=== PATIENT | female | born 1950 | race Caucasian/White ===

== ENCOUNTER 2021-05-14 01:01 | Inpatient (IN) | payer MEDICARE ==
[2021-05-14] MEDS ORDERED: Fentanyl 100 MCG/2 ML VIAL ONE ×2 (01:46→04:47)
[2021-05-14] MEDS ORDERED: Ondansetron PF 4 MG/2 ML Vial ONE (01:46)
[2021-05-14 01:53] LABS: Hemoglobin 12.8 g/dL (12.0-16.0); Mean Corpuscular HGB CONC 34.7 g/dL (32.0-36.0); Mean Corpuscular Hemoglobin 32.2 pg (27.0-31.0); Mean Corpuscular Volume 92.8 fL (78.0-98.0); Mean Platelet Volume 8.8 fL (7.4-10.4); Platelet Count 286 thou/uL (130-400); RBC Distribution Width 22.7 % (11.5-14.5); Red Blood Cell (RBC) Count 3.96 mill/uL (4.20-5.40); White Blood Cell (WBC) Count 12.6 thou/uL (4.8-10.8)
[2021-05-14 02:14] LABS: #Basophils 0.1 thou/uL (0.0-0.2); #Eosinphils 0.2 thou/uL (0.0-0.7); #Lymphocytes 1.8 thou/uL (1.20-3.40); #Monocytes 0.9 thou/uL (0.11-0.59); #Neutrophils 9.6 thou/uL (1.40-6.50); %Basophils 0.5 % (0.0-1.0); %Lymphocytes 14.4 % (21.0-51.0); %Monocytes 7.3 % (0.0-10.0); %Neutrophils 75.9 % (42.0-75.0)
[2021-05-14 02:21] LABS: ALT (SGPT) 12 U/L (8-55); AST (SGOT) 22 U/L (5-34); Albumin 3.9 g/dL (3.4-4.8); Alkaline Phosphatase 62 U/L (40-110); Anion Gap 13 mmol/L (10-20); BUN (Urea Nitrogen) 23 mg/dL (9.8-20.1); Bilirubin, Total 0.3 mg/dL (0.2-1.2); Calc. Creatinine Clearance 0 mL/min (70-130); Calcium 9.5 mg/dL (7.8-10.44); Carbon Dioxide 30 mmol/L (23-31); Chloride 92 mmol/L (98-107); Globulin 3.2 g/dL (2.4-3.5); Glucose 115 mg/dL (83-110); Lipase 21 U/L (8-78); Potassium 3.7 mmol/L (3.5-5.1); Protein, Total 7.1 g/dL (5.8-8.1); Sodium 131 mmol/L (136-145)
[2021-05-14 05:48] LABS: Bacteria/HPF 4+ HPF (None Seen); Bilirubin Negative (Negative); Blood, Urine Negative (Negative); Clarity Clear (Clear); Glucose, Urine (Dipstick) Normal (Negative); Ketone, Urine Negative (Negative); Leukocyte 75 Leu/uL (Negative); Nitrite 2+ (Negative); Protein, Urine (Dipstick) 10 mg/dL (Neg-Trace); Specific Gravity, Urine 1.044 (1.002-1.036); Squamous Epithelial None Seen HPF (0-3); Urobilinogen Normal mg/dL (Less than 2); WBC/HPF 21-50 HPF (0-3); pH, Urine 6.5 (5.0-9.0)
[2021-05-14] MEDS ORDERED: cefTRIAXone\\ROCEPHIN 2 GM VIAL ONE (06:02)
[2021-05-14 06:58] LABS: SARS-CoV-2 NAA Rapid Test Not Detected (NotDetected)
[2021-05-14 07:24] VITALS: BMI 33.5
[2021-05-14] MEDS ORDERED: Sodium Chloride 0.9% 1,000 ML IV SCH (08:00)
[2021-05-14] MEDS ORDERED: Ondansetron ODT 4 MG TAB SL PRN ×2 (08:00→19:48)
[2021-05-14] MEDS ORDERED: Ondansetron PF 4 MG/2 ML Vial IVP PRN ×2 (08:00→19:48)
[2021-05-14] MEDS: Fentanyl 100 MCG/2 ML VIAL SLOW IVP PRN ×3 (08:04→14:47)
[2021-05-14] MEDS ORDERED: Iopamidol-370 76% 500 ML 1 ML ONE (08:42)
[2021-05-14] MEDS ORDERED: MD-Gastroview 120 ML BOT ONE (08:55)
[2021-05-14] MEDS: Dicyclomine 20 MG TAB PO SCH ×2 (18:43→20:37)
[2021-05-14] MEDS ORDERED: Acetaminophen 500 MG TAB PO PRN (19:49)
[2021-05-14] MEDS: cloNIDine 0.1 MG TAB PO SCH (20:36)
[2021-05-14] MEDS: busPIRone HCl 5 MG TAB PO SCH (20:36)
[2021-05-14] MEDS: Gabapentin 300 MG CAP PO SCH (20:37)
[2021-05-14] MEDS ORDERED: Divalproex Sodium 125 mg Sprinkle Capsule PO SCH (21:00)
[2021-05-14] MEDS ORDERED: Atorvastatin Calcium 10 MG TAB PO SCH (21:00)
[2021-05-15] MEDS ORDERED: Levothyroxine Sodium 50 MCG TAB PO SCH (06:00)
[2021-05-15] MEDS ORDERED: Ferrous Sulfate 325 MG TAB PO SCH (08:00)
[2021-05-15] MEDS ORDERED: Furosemide 20 MG TAB PO SCH (09:00)
[2021-05-15] MEDS ORDERED: Losartan 25 MG TAB PO SCH ×2 (09:00)
[2021-05-15] MEDS ORDERED: Hydrochlorothiazide 25 MG TAB PO SCH (09:00)
[2021-05-15] MEDS ORDERED: Divalproex Sodium 125 mg Sprinkle Capsule PO SCH (09:00)
[2021-05-15] MEDS ORDERED: Folic Acid 1 MG TAB PO SCH (09:00)
[2021-05-15] MEDS ORDERED: Trospium 20 MG TAB PO SCH (09:00)
[2021-05-15] MEDS ORDERED: Citalopram 20 MG TAB PO SCH (09:00)
[2021-05-15] MEDS: cloNIDine 0.1 MG TAB PO SCH (09:23)
[2021-05-15] MEDS: Gabapentin 300 MG CAP PO SCH (09:24)
[2021-05-15] MEDS: busPIRone HCl 5 MG TAB PO SCH (09:26)
[2021-05-15] MEDS: Dicyclomine 20 MG TAB PO SCH ×2 (09:28→13:15)
[2021-05-15] MEDS: Aripiprazole 2 MG TAB PO SCH ×2 (09:30→09:37)
[2021-05-15 11:00] VITALS: BP 109/67; TEMP 97.8
== END 2021-05-15 13:45 | disposition home or self-care (01) | DRG 389 ==
LOC: ERS 01:01 → SJJU 04:23
PROVIDERS: ADMIT Specialist; ATTEND Specialist
DX: K56.600 Partial intestinal obstruction, unspecified as to cause (principal); N39.0 Urinary tract infection, site not specified; F41.9 Anxiety disorder, unspecified; I10 Essential (primary) hypertension; E78.5 Hyperlipidemia, unspecified; F31.9 Bipolar disorder, unspecified; B96.20 Unspecified Escherichia coli [E. coli] as the cause of diseases classified elsewhere; Z88.5 Allergy status to narcotic agent; Z88.0 Allergy status to penicillin; Z90.49 Acquired absence of other specified parts of digestive tract; Z79.899 Other long term (current) drug therapy; Z90.710 Acquired absence of both cervix and uterus; Z85.038 Personal history of other malignant neoplasm of large intestine; Z93.2 Ileostomy status; Z87.891 Personal history of nicotine dependence
CPT/HCPCS: 71045; 74022; 74177; 74250; 80053; 81003; 81015; 83690; 85025; 87077; 87086; 87186; 93005; 96374; 96375; 96376; J0696; J2405; J3010; Q9963; Q9967; U0002; U0005

== ENCOUNTER 2024-08-28 08:22 | Inpatient (IN) | payer MEDICARE ==
[2024-08-28 09:00] LABS: #Basophils 0.03 10x3/uL (0.0-0.2); %Basophils 0.2 % (0.0-1.0); %Eosinophils 0.6 % (0.0-10.0); %Lymphocytes 8.7 % (21.0-51.0); %Monocytes 6.4 % (0.0-10.0); %Neutrophils 83.8 % (42.0-75.0); Hematocrit 44.7 % (36.0-47.0); Hemoglobin 15.4 g/dL (12.0-16.0); Mean Corpuscular HGB CONC 34.5 g/dL (32.0-36.0); Mean Corpuscular Hemoglobin 32.8 pg (27.0-31.0); Mean Corpuscular Volume 95.3 fL (78.0-98.0); Mean Platelet Volume 9.8 fL (7.4-10.4); Platelet Count 255 10x3/uL (130-400); RBC Distribution Width 14.8 % (11.5-14.5); Red Blood Cell (RBC) Count 4.69 mill/uL (4.20-5.40)
[2024-08-28 09:13] LABS: ALT (SGPT) 23 U/L (8-55); AST (SGOT) 29 U/L (5-34); Albumin 4.2 g/dL (3.4-4.8); Alkaline Phosphatase 80 U/L (40-110); Anion Gap 20 mmol/L (10-20); BUN (Urea Nitrogen) 20 mg/dL (9.8-20.1); Bilirubin, Total 0.5 mg/dL (0.2-1.2); Calc. Creatinine Clearance 0 mL/min (70-130); Calcium 9.5 mg/dL (7.8-10.44); Carbon Dioxide 19 mmol/L (23-31); Chloride 102 mmol/L (98-107); Estimated GFR 60; Globulin 4.4 g/dL (2.4-3.5); Glucose 173 mg/dL (83-110); Lipase 40 U/L (8-78); Magnesium 1.8 mg/dL (1.6-2.6); Potassium 3.6 mmol/L (3.5-5.1); Protein, Total 8.6 g/dL (5.8-8.1); Sodium 137 mmol/L (136-145)
[2024-08-28] MEDS ORDERED: Metoclopramide HCl 10 MG (2 mL) VIAL ONE (09:25)
[2024-08-28] MEDS ORDERED: Benzocaine 20% Spray 60 ML CAN ONE (10:12)
[2024-08-28] MEDS ORDERED: fentaNYL 50 mcg/mL 1 mL Vial ONE (10:17)
[2024-08-28] MEDS ORDERED: Dexamethasone 10 MG/ML VIAL ONE (10:37)
[2024-08-28] MEDS ORDERED: Ondansetron PF 4 MG/2 ML Vial IVP PRN (11:26)
[2024-08-28] MEDS ORDERED: Iopamidol-370 76% 500 ML MDV (1 ML CHARGE) ONE (11:30)
[2024-08-28 12:33] LABS: Lactic Acid 4.94 mmol/L (0.5-2.2)
[2024-08-28] MEDS: Ketorolac Tromethamine 30 MG (1 mL) VIAL IVP PRN (14:01)
[2024-08-28] MEDS: Lactated Ringer's 1,000 ML IV SCH ×3 (14:23→15:41)
[2024-08-28] MEDS: FLU (Fluad Triv) TS24-25 (65UP)/MF59C/PF 45 MCG/0.5 ML Syringe IM ONE (15:51)
[2024-08-28 16:13] VITALS: BMI 26.9
[2024-08-28] MEDS: hydrALAZINE 20 MG/ML VIAL SLOW IVP PRN (16:32)
[2024-08-28] MEDS: HYDROmorphone 0.5 MG/0.5 ML SYRINGE SLOW IVP PRN (18:13)
[2024-08-28] MEDS: cloNIDine 0.1 MG TAB PO SCH ×2 (18:27→21:31)
[2024-08-28] MEDS: Divalproex Sodium 125 mg Sprinkle Capsule PO SCH (21:30)
[2024-08-28] MEDS: busPIRone HCl 5 MG TAB PO SCH (21:31)
[2024-08-28] MEDS: Trospium 20 MG TAB PO SCH (21:31)
[2024-08-28] MEDS: Enoxaparin 40 MG (0.4 mL) SYRINGE SC SCH (21:31)
[2024-08-29] MEDS: HYDROmorphone 0.5 MG/0.5 ML SYRINGE SLOW IVP SCH (03:04)
[2024-08-29] MEDS: Levothyroxine Sodium 50 MCG TAB PO SCH (05:29)
[2024-08-29 08:05] LABS: Anion Gap 18 mmol/L (10-20); BUN (Urea Nitrogen) 25 mg/dL (9.8-20.1); Calc. Creatinine Clearance 52 mL/min (70-130); Calcium 8.5 mg/dL (7.8-10.44); Carbon Dioxide 22 mmol/L (23-31); Chloride 101 mmol/L (98-107); Estimated GFR 51; Glucose 103 mg/dL (83-110); Potassium 4.7 mmol/L (3.5-5.1); Sodium 136 mmol/L (136-145)
[2024-08-29 08:07] LABS: Hematocrit 35.2 % (36.0-47.0); Hemoglobin 11.9 g/dL (12.0-16.0); Mean Corpuscular HGB CONC 33.8 g/dL (32.0-36.0); Mean Corpuscular Hemoglobin 32.8 pg (27.0-31.0); Mean Platelet Volume 10.2 fL (7.4-10.4); Platelet Count 230 10x3/uL (130-400); RBC Distribution Width 15.6 % (11.5-14.5); Red Blood Cell (RBC) Count 3.63 mill/uL (4.20-5.40)
[2024-08-29] MEDS: Losartan 25 MG TAB PO SCH (08:48)
[2024-08-29] MEDS: Aripiprazole 2 MG TAB PO SCH (08:48)
[2024-08-29] MEDS: Divalproex Sodium 125 mg Sprinkle Capsule PO SCH (08:49)
[2024-08-29 09:02] LABS: #Basophils Less than 0.03 10x3/uL (0.0-0.2); %Basophils 0.3 % (0.0-1.0); %Eosinophils 4.3 % (0.0-10.0); %Lymphocytes 29.1 % (21.0-51.0); %Neutrophils 52.2 % (42.0-75.0); Macrocytosis SLIGHT = 6-15 cells HPF (0-5); Ovalocytes SLIGHT = 2-5 cells HPF (0-1); Platelet Adequacy Comment Platelets Normal; Poikilocytosis SLIGHT = 6-15 cells HPF (0-5); Polychromasia MARKED = >4 cells HPF (0-2)
[2024-08-29] MEDS: fentaNYL 50 mcg/mL 1 mL Vial SLOW IVP PRN (11:12)
[2024-08-29] MEDS ORDERED: fentaNYL 50 mcg/mL 1 mL Vial ONE (12:16)
[2024-08-29] MEDS ORDERED: Famotidine/PF 20 mg/2ml Vial ONE ×2 (12:17)
[2024-08-29] MEDS ORDERED: Ondansetron PF 4 MG/2 ML Vial ONE (12:23)
[2024-08-29] MEDS ORDERED: cefOXitin 2 GM in Sodium Chloride 0.9% 100 ML IVPB SCH (12:30)
[2024-08-29] MEDS ORDERED: cefOXitin 2 GM VIAL ONE ×2 (12:57→15:51)
[2024-08-29] MEDS ORDERED: Sodium Chloride 0.9% 100 ML ONE (12:58)
[2024-08-29] MEDS ORDERED: Promethazine HCl 25 MG/ML VIAL IM PRN ×3 (13:48→22:56)
[2024-08-29] MEDS ORDERED: HYDROmorphone 2 MG/ML VIAL SLOW IVP PRN ×2 (13:48→15:39)
[2024-08-29] MEDS ORDERED: fentaNYL PF 100 MCG/2 ML SYRINGE ONE ×2 (13:52→18:37)
[2024-08-29] MEDS ORDERED: PROPOFOL 20 ML ONE (13:53)
[2024-08-29] MEDS ORDERED: Rocuronium Bromide 10 MG/ML (10ML VIAL) ONE (14:15)
[2024-08-29] MEDS ORDERED: Glycopyrrolate 0.2 MG/ML 5 ML SYRINGE ONE (14:15)
[2024-08-29] MEDS ORDERED: Lidocaine 1% PF 5 ML VIAL ONE (14:15)
[2024-08-29] MEDS ORDERED: SUGAMMADEX SODIUM 200 MG/2 ML VIAL ONE ×2 (15:18→18:37)
[2024-08-29] MEDS ORDERED: Ondansetron HCl/PF 4 MG/2 ML Vial IVP PRN (15:39)
[2024-08-29] MEDS ORDERED: Dexmedetomidine 200 MCG/2 ML VIAL ONE (15:51)
[2024-08-29] MEDS ORDERED: diphenhydrAMINE 25 MG CAP PO PRN (22:56)
[2024-08-29] MEDS ORDERED: Naloxone HCl 0.4 mg/ml Vial IV PRN (22:56)
[2024-08-29] MEDS ORDERED: Ondansetron PF 4 MG/2 ML Vial IVP PRN (22:56)
[2024-08-29] MEDS ORDERED: diphenhydrAMINE 50 MG/ML VIAL IM PRN (22:56)
[2024-08-29] MEDS ORDERED: diphenhydrAMINE 50 MG/ML VIAL IVP PRN (22:56)
[2024-08-29] MEDS ORDERED: Communication Order-Pharmacy FS SCH (23:00)
[2024-08-29] MEDS: cefOXitin 2 GM in Sodium Chloride 0.9% 100 ML IVPB SCH (23:13)
[2024-08-29] MEDS: Albumin 25% 25 GM (100 mL) BOT IVPB SCH (23:13)
[2024-08-29] MEDS: HYDROmorphone/PF 10 MG in Sodium Chloride 0.9% 99 ML IV PRN (23:52)
[2024-08-29] MEDS ORDERED: Ketorolac Tromethamine 30 MG (1 mL) VIAL IVP SCH (23:59)
[2024-08-30 06:44] LABS: Hematocrit 36.7 % (36.0-47.0); Hemoglobin 12.5 g/dL (12.0-16.0); Mean Corpuscular HGB CONC 34.1 g/dL (32.0-36.0); Mean Corpuscular Hemoglobin 32.4 pg (27.0-31.0); Mean Corpuscular Volume 95.1 fL (78.0-98.0); Mean Platelet Volume 9.9 fL (7.4-10.4); Platelet Count 211 10x3/uL (130-400); RBC Distribution Width 15.9 % (11.5-14.5); Red Blood Cell (RBC) Count 3.86 mill/uL (4.20-5.40)
[2024-08-30 07:08] LABS: Band 39 % (5-11); Large Platelets 6.7 % (0-5); Lymphocytes 32 % (21-51); Metamyelocyte 7 % (0-0); Monocytes 11 % (0-10); Myelocyte 1 % (0-0); Neutrophil 10 % (42-75); Nucleated RBC (Manual Ct) 1 % (0); Platelet Adequacy Comment Platelets Normal; RBC Morphology Within Normal Limits; Reactive Lymphocytes 1 % (0-10); Smudge Cells 20.2 %
[2024-08-30 07:13] LABS: ALT (SGPT) 19 U/L (8-55); AST (SGOT) 24 U/L (5-34); Albumin 2.9 g/dL (3.4-4.8); Alkaline Phosphatase 38 U/L (40-110); Anion Gap 17 mmol/L (10-20); BUN (Urea Nitrogen) 26 mg/dL (9.8-20.1); Bilirubin, Total 0.9 mg/dL (0.2-1.2); Calc. Creatinine Clearance 56 mL/min (70-130); Calcium 7.9 mg/dL (7.8-10.44); Carbon Dioxide 21 mmol/L (23-31); Chloride 103 mmol/L (98-107); Estimated GFR 56; Globulin 2.6 g/dL (2.4-3.5); Glucose 109 mg/dL (83-110); Magnesium 1.3 mg/dL (1.6-2.6); Potassium 3.7 mmol/L (3.5-5.1); Protein, Total 5.5 g/dL (5.8-8.1); Sodium 137 mmol/L (136-145)
[2024-08-30] MEDS: Lactated Ringer's 1,000 ML IV SCH (12:32)
[2024-08-30] MEDS: Magnesium Sulfate In Water 4 GM in Premix 1 BAG IVPB SCH (13:28)
[2024-08-31] MEDS ORDERED: Electrolyte Replacement Protocol 1 EACH FS PRN (01:30)
[2024-08-31] MEDS: Metoprolol Tartrate 5 MG (5 mL) VIAL IVP SCH ×2 (02:31→06:06)
[2024-08-31] MEDS ORDERED: Glucagon 1 MG/ML KIT IM PRN (02:48)
[2024-08-31] MEDS ORDERED: Dextrose 5% in Water 1,000 ML IV PRN (02:48)
[2024-08-31] MEDS: dilTIAZem 25 MG/5 ML VIAL SLOW IVP SCH (03:05)
[2024-08-31] MEDS: Dextrose 50% Abboject 50 ML SYRINGE SLOW IVP PRN (03:36)
[2024-08-31] MEDS ORDERED: dilTIAZem 125 MG in Sodium Chloride 0.9% 100 ML IVPB SCH (03:45)
[2024-08-31 03:58] LABS: Hematocrit 28.8 % (36.0-47.0); Mean Corpuscular HGB CONC 34.7 g/dL (32.0-36.0); Mean Corpuscular Hemoglobin 32.8 pg (27.0-31.0); Mean Corpuscular Volume 94.4 fL (78.0-98.0); Mean Platelet Volume 10.4 fL (7.4-10.4); Platelet Count 149 10x3/uL (130-400); RBC Distribution Width 15.9 % (11.5-14.5); Red Blood Cell (RBC) Count 3.05 mill/uL (4.20-5.40)
[2024-08-31 04:12] LABS: Lactic Acid 2.04 mmol/L (0.5-2.2)
[2024-08-31 04:16] LABS: ALT (SGPT) 11 U/L (8-55); AST (SGOT) 21 U/L (5-34); Albumin 2.9 g/dL (3.4-4.8); Alkaline Phosphatase 29 U/L (40-110); Anion Gap 12 mmol/L (10-20); BUN (Urea Nitrogen) 15 mg/dL (9.8-20.1); Calc. Creatinine Clearance 66 mL/min (70-130); Calcium 8.2 mg/dL (7.8-10.44); Carbon Dioxide 24 mmol/L (23-31); Chloride 97 mmol/L (98-107); Estimated GFR 68; Globulin 2.3 g/dL (2.4-3.5); Glucose 344 mg/dL (83-110); Magnesium 2.1 mg/dL (1.6-2.6); Potassium 3.4 mmol/L (3.5-5.1); Protein, Total 5.2 g/dL (5.8-8.1); Sodium 130 mmol/L (136-145)
[2024-08-31 04:44] LABS: Anisocytosis MODERATE=16-30 cells HPF (0-5); Band 17 % (5-11); Basophilic Stippling SLIGHT = 1-2 cells HPF (None Seen); Burr Cells SLIGHT = 2-5 cells HPF (0-1); Large Platelets 2.5 % (0-5); Lymphocytes 9 % (21-51); Macrocytosis SLIGHT = 6-15 cells HPF (0-5); Metamyelocyte 17 % (0-0); Monocytes 7 % (0-10); Myelocyte 2 % (0-0); Neutrophil 47 % (42-75); Ovalocytes SLIGHT = 2-5 cells HPF (0-1); Platelet Adequacy Comment Platelets Normal; Polychromasia SLIGHT = 2-3 cells HPF (0-2); Reactive Lymphocytes 1 % (0-10); Smudge Cells 9.9 %; Toxic Granulation MODERATE
[2024-08-31] MEDS: Potassium Chloride 20 MEQ in Premix 1 BAG IVPB SCH (05:59)
[2024-08-31] MEDS: Diltiazem HCl/D5W 125 MG in Premix 1 BAG IVPB SCH (07:35)
[2024-08-31] MEDS: Sodium Chloride 0.9% 500 ML IV SCH (08:05)
[2024-08-31] MEDS: NS 0.9% w/ 40 MEQ KCL 1,000 ML IV SCH (08:43)
[2024-08-31] MEDS: Digoxin 0.5 MG/2 ML AMP SLOW IVP SCH (14:58)
[2024-08-31] MEDS: Amiodarone 150 MG, Admixture Fee 1 EACH in Dextrose 5% in Water 100 ML IVPB SCH (17:15)
[2024-08-31] MEDS: Amiodarone 450 MG in Dextrose 5% in Water 250 ML IVPB SCH (17:23)
[2024-08-31 18:10] LABS: Hematocrit 28.2 % (36.0-47.0); Platelet Count 149 10x3/uL (130-400)
[2024-08-31] MEDS ORDERED: HYDROmorphone 0.5 MG/0.5 ML SYRINGE SLOW IVP PRN (18:24)
[2024-08-31] MEDS: Ketorolac Tromethamine 30 MG (1 mL) VIAL IVP SCH (18:54)
[2024-08-31] MEDS: D5W-AA 4.25% with LYTES 1,000 ML IV SCH (19:14)
[2024-08-31] MEDS: Heparin 10,000 UNITS/ 10 ML VIAL SLOW IVP SCH (19:24)
[2024-08-31] MEDS: Heparin 25,000 units/D5W 500 ML IVPB SCH (19:25)
[2024-08-31] MEDS: fentaNYL 50 mcg/mL 1 mL Vial SLOW IVP PRN (22:28)
[2024-09-01] MEDS: Ketorolac Tromethamine 30 MG (1 mL) VIAL IVP SCH
[2024-09-01 05:47] LABS: Hematocrit 26.1 % (36.0-47.0); Hemoglobin 9.1 g/dL (12.0-16.0); Mean Corpuscular HGB CONC 34.9 g/dL (32.0-36.0); Mean Corpuscular Hemoglobin 32.2 pg (27.0-31.0); Mean Corpuscular Volume 92.2 fL (78.0-98.0); Mean Platelet Volume 11.1 fL (7.4-10.4); Platelet Count 148 10x3/uL (130-400); RBC Distribution Width 15.9 % (11.5-14.5); Red Blood Cell (RBC) Count 2.83 mill/uL (4.20-5.40)
[2024-09-01 06:12] LABS: ALT (SGPT) 12 U/L (8-55); AST (SGOT) 15 U/L (5-34); Albumin 2.3 g/dL (3.4-4.8); Alkaline Phosphatase 47 U/L (40-110); Anion Gap 12 mmol/L (10-20); BUN (Urea Nitrogen) 19 mg/dL (9.8-20.1); Bilirubin, Total 1.3 mg/dL (0.2-1.2); Calc. Creatinine Clearance 71 mL/min (70-130); Calcium 8.3 mg/dL (7.8-10.44); Carbon Dioxide 23 mmol/L (23-31); Chloride 102 mmol/L (98-107); Estimated GFR 75; Globulin 2.8 g/dL (2.4-3.5); Glucose 132 mg/dL (83-110); Potassium 3.9 mmol/L (3.5-5.1); Protein, Total 5.1 g/dL (5.8-8.1); Sodium 133 mmol/L (136-145)
[2024-09-01 06:37] LABS: Band 17 % (5-11); Eosinophils 3 % (0-10); Large Platelets 2.9 % (0-5); Lymphocytes 8 % (21-51); Monocytes 3 % (0-10); Neutrophil 70 % (42-75); Platelet Adequacy Comment Platelets Normal; RBC Morphology Within Normal Limits; Smudge Cells 10.8 %
[2024-09-01] MEDS: Ondansetron ODT 4 MG TAB PO PRN (10:25)
[2024-09-01] MEDS: fentaNYL 50 mcg/mL 1 mL Vial SLOW IVP PRN (18:40)
[2024-09-01] MEDS: cloNIDine 0.1 MG TAB PER TUBE SCH (20:24)
[2024-09-01] MEDS: busPIRone HCl 5 MG TAB PER TUBE SCH (20:24)
[2024-09-01] MEDS: Divalproex Sodium 125 mg Sprinkle Capsule PER TUBE SCH (20:24)
[2024-09-01] MEDS: Trospium 20 MG TAB PER TUBE SCH (20:29)
[2024-09-01] MEDS: Apixaban 5 MG TAB PO SCH (22:33)
[2024-09-02] MEDS: Metoprolol Tartrate 5 MG (5 mL) VIAL IVP SCH (04:09)
[2024-09-02] MEDS ORDERED: dilTIAZem 125 MG, Admixture Fee 1 EACH in Sodium Chloride 0.9% 100 ML IVPB SCH (05:15)
[2024-09-02 05:23] LABS: Magnesium 1.8 mg/dL (1.6-2.6); Phosphorus 1.7 mg/dL (2.3-4.7)
[2024-09-02] MEDS: Levothyroxine Sodium 50 MCG TAB PER TUBE SCH (05:47)
[2024-09-02] MEDS: Metoprolol Tartrate 5 MG (5 mL) VIAL ONE (05:51)
[2024-09-02] MEDS ORDERED: Electrolyte Replacement Protocol FS PRN (07:15)
[2024-09-02] MEDS: Magnesium 2 GM/50 ML(in water) 2 GM in Premix 1 BAG IVPB SCH (08:28)
[2024-09-02] MEDS: Amiodarone 200 MG TAB PO SCH (08:28)
[2024-09-02] MEDS: Aripiprazole 2 MG TAB PER TUBE SCH (08:28)
[2024-09-02] MEDS: Losartan 25 MG TAB PER TUBE SCH (08:29)
[2024-09-02] MEDS: Divalproex Sodium 125 mg Sprinkle Capsule PER TUBE SCH (08:29)
[2024-09-02] MEDS: Metoprolol Tartrate 100 MG TAB PER TUBE SCH (08:29)
[2024-09-02] MEDS: Famotidine/PF 20 mg/2ml Vial SLOW IVP SCH (08:29)
[2024-09-02] MEDS: Apixaban 5 MG TAB PO SCH (08:29)
[2024-09-02] MEDS: Potassium Phosphate 15 MMOL in Sodium Chloride 0.9% 100 ML IVPB SCH (08:50)
[2024-09-02] MEDS ORDERED: Iopamidol-370 76% 500 ML MDV (1 ML CHARGE) ONE (09:08)
[2024-09-02] MEDS ORDERED: Lidocaine 1% w/Epinephrine 1:100K 20 ML VIAL ONE (15:51)
[2024-09-02] MEDS ORDERED: Sodium Bicarbonate 2.5 MEQ/5 ML SDV ONE (15:52)
[2024-09-02] MEDS ORDERED: fentaNYL 50 mcg/mL 1 mL Vial ONE (16:14)
[2024-09-02 20:04] LABS: BF Color Red; Body Fluid Source Abscess Fluid; Clarity Cloudy/Turbid (Clear); Tube # EDTA
[2024-09-02 20:26] LABS: Cell Count Non Hematic 70 %; Lymphocytes 22 %
[2024-09-03 05:01] LABS: Hematocrit 25.4 % (36.0-47.0); Hemoglobin 9.4 g/dL (12.0-16.0); Mean Corpuscular Hemoglobin 32.9 pg (27.0-31.0); Mean Corpuscular Volume 88.8 fL (78.0-98.0); Mean Platelet Volume 11.5 fL (7.4-10.4); Platelet Count 194 10x3/uL (130-400); RBC Distribution Width 16.1 % (11.5-14.5); Red Blood Cell (RBC) Count 2.86 mill/uL (4.20-5.40)
[2024-09-03 05:35] LABS: Band 17 % (5-11); Eosinophils 1 % (0-10); Large Platelets 0.8 % (0-5); Lymphocytes 4 % (21-51); Monocytes 11 % (0-10); Myelocyte 2 % (0-0); Neutrophil 64 % (42-75); Nucleated RBC (Manual Ct) 1 % (0); Platelet Adequacy Comment Platelets Normal; Polychromasia SLIGHT = 2-3 cells HPF (0-2); Reactive Lymphocytes 2 % (0-10); Target Cells SLIGHT = 2-5 cells HPF (0-1); Toxic Granulation SLIGHT; Vacuoles SLIGHT
[2024-09-03 06:24] LABS: Phosphorus 3.7 mg/dL (2.3-4.7)
[2024-09-03 06:25] LABS: ALT (SGPT) 12 U/L (8-55); AST (SGOT) 31 U/L (5-34); Albumin 2.1 g/dL (3.4-4.8); Alkaline Phosphatase 54 U/L (40-110); Anion Gap 17 mmol/L (10-20); BUN (Urea Nitrogen) 33 mg/dL (9.8-20.1); Bilirubin, Total 0.8 mg/dL (0.2-1.2); Calc. Creatinine Clearance 68 mL/min (70-130); Calcium 8.8 mg/dL (7.8-10.44); Carbon Dioxide 25 mmol/L (23-31); Chloride 95 mmol/L (98-107); Estimated GFR 68; Globulin 3.9 g/dL (2.4-3.5); Glucose 99 mg/dL (83-110); Magnesium 2.4 mg/dL (1.6-2.6); Sodium 133 mmol/L (136-145)
[2024-09-03 11:37] LABS: Magnesium 2.4 mg/dL (1.6-2.6)
[2024-09-03] MEDS: Cefepime 1 GM in Sodium Chloride 0.9% 100 ML IVPB SCH (13:40)
[2024-09-03] MEDS: metroNIDAZOLE 500 MG in Premix 1 BAG IVPB SCH (13:41)
[2024-09-03] MEDS: Vancomycin (BATCH) 1.5 GM in Premix 1 BAG IVPB SCH (14:00)
[2024-09-03] MEDS: dilTIAZem 30 MG TAB PO SCH (18:36)
[2024-09-04] MEDS: Vancomycin 1 GM in Premix 1 BAG IVPB SCH (01:59)
[2024-09-04] MEDS: dilTIAZem 125 MG in Sodium Chloride 0.9% 100 ML IVPB SCH (04:55)
[2024-09-04] MEDS ORDERED: MD-Gastroview 120 ML BOT ONE (07:01)
[2024-09-04 07:47] LABS: Vancomycin, Random 27.2 ug/mL (See Comment)
[2024-09-04 07:55] LABS: Anion Gap 16 mmol/L (10-20); BUN (Urea Nitrogen) 38 mg/dL (9.8-20.1); Calc. Creatinine Clearance 78 mL/min (70-130); Calcium 8.1 mg/dL (7.8-10.44); Carbon Dioxide 25 mmol/L (23-31); Chloride 94 mmol/L (98-107); Estimated GFR 78; Glucose 113 mg/dL (83-110); Potassium 3.5 mmol/L (3.5-5.1); Sodium 131 mmol/L (136-145)
[2024-09-04 08:20] LABS: Hematocrit 26.9 % (36.0-47.0); Hemoglobin 10.1 g/dL (12.0-16.0); Mean Corpuscular HGB CONC 37.5 g/dL (32.0-36.0); Mean Corpuscular Hemoglobin 32.3 pg (27.0-31.0); Mean Corpuscular Volume 85.9 fL (78.0-98.0); Platelet Count 163 10x3/uL (130-400); RBC Distribution Width 16.1 % (11.5-14.5); Red Blood Cell (RBC) Count 3.13 mill/uL (4.20-5.40)
[2024-09-04 09:42] LABS: #Basophils 0.03 10x3/uL (0.0-0.2); %Basophils 0.2 % (0.0-1.0); %Eosinophils 0.8 % (0.0-10.0); %Lymphocytes 9.9 % (21.0-51.0); %Monocytes 8.8 % (0.0-10.0); %Neutrophils 76.3 % (42.0-75.0); Band 22 % (5-11); Lymphocytes 12 % (21-51); Monocytes 3 % (0-10); Myelocyte 1 % (0-0); Neutrophil 59 % (42-75); Plasma Cells 0 % (0-0); Platelet Adequacy Comment Appears Adequate; Polychromasia SLIGHT = 2-3 cells (100X) (0-2/hpf); Reactive Lymphocytes 3 % (0-10); Total Cell Count 100
[2024-09-04] MEDS: Potassium Chloride 20 MEQ in Premix 1 BAG IVPB SCH (14:39)
[2024-09-04 15:33] LABS: Hematocrit 26.7 % (36.0-47.0); Hemoglobin 9.9 g/dL (12.0-16.0); Platelet Count 226 10x3/uL (130-400)
[2024-09-04 20:52] LABS: Potassium 4.7 mmol/L (3.5-5.1)
[2024-09-05] MEDS: Vancomycin (BATCH) 1.25 GM in Premix 1 BAG IVPB SCH (01:59)
[2024-09-05 04:50] LABS: Hematocrit 24.8 % (36.0-47.0); Hemoglobin 9.1 g/dL (12.0-16.0); Mean Corpuscular HGB CONC 36.7 g/dL (32.0-36.0); Mean Corpuscular Hemoglobin 32.3 pg (27.0-31.0); Mean Corpuscular Volume 87.9 fL (78.0-98.0); Mean Platelet Volume 11.1 fL (7.4-10.4); Platelet Count 252 10x3/uL (130-400); Red Blood Cell (RBC) Count 2.82 mill/uL (4.20-5.40); Vancomycin, Random 61.5 ug/mL (See Comment)
[2024-09-05 05:16] LABS: Anisocytosis MARKED = >30 cells HPF (0-5); Band 27 % (5-11); Eosinophils 2 % (0-10); Hypochromia SLIGHT = 6-15 cells HPF (0-5); Lymphocytes 5 % (21-51); Monocytes 6 % (0-10); Neutrophil 58 % (42-75); Platelet Adequacy Comment Platelets Normal; Poikilocytosis SLIGHT = 6-15 cells HPF (0-5); Promyelocytes 1 % (0-0); Reactive Lymphocytes 1 % (0-10); Target Cells SLIGHT = 2-5 cells HPF (0-1)
[2024-09-05] MEDS: Ketorolac Tromethamine 30 MG (1 mL) VIAL IVP SCH (20:18)
[2024-09-05] MEDS: Ondansetron PF 4 MG/2 ML Vial IVP PRN (20:32)
[2024-09-06] MEDS: Vancomycin 1 GM in Premix 1 BAG IVPB SCH (06:02)
[2024-09-06 07:21] LABS: Vancomycin, Random 23.2 ug/mL (See Comment)
[2024-09-06] MEDS ORDERED: Ketamine In 0.9 % NaCl 50 MG/5 ML SYRINGE ONE (12:15)
[2024-09-06] MEDS ORDERED: PROPOFOL 20 ML ONE (12:15)
[2024-09-06] MEDS ORDERED: fentaNYL PF 100 MCG/2 ML SYRINGE ONE ×2 (12:15→15:20)
[2024-09-06] MEDS ORDERED: metroNIDAZOLE 500 MG (100 mL) BAG ONE (12:21)
[2024-09-06] MEDS ORDERED: PHENYLEPHRINE-NS 100 MCG/ML 10 ML SYRINGE ONE ×2 (12:56→13:42)
[2024-09-06] MEDS ORDERED: Calcium Chloride 1 GM/10 ML Abboject SYRINGE ONE (13:42)
[2024-09-06] MEDS ORDERED: HYDROmorphone 2 MG/ML VIAL SLOW IVP PRN (14:35)
[2024-09-06] MEDS ORDERED: Ondansetron HCl/PF 4 MG/2 ML Vial IVP PRN (14:35)
[2024-09-06] MEDS ORDERED: Promethazine HCl 25 MG/ML VIAL IM PRN (14:35)
[2024-09-06 14:55] LABS: Actual Bicarbonate (HCO3a) 25.4 mEq/L (22-28); Carboxyhemoglobin (COHb) 0.6 gm% (0.0-3.0); Hematocrit-ABG 26 % (36.0-47.0); Hemoglobin (Hb) 8.9 g/dL (12.0-16.0); O2 Tension (PaO2), arterial 96.2 mmHg (> 70.0); Potassium - ABG Lab 4.18 mmol/L (3.70-5.30); pH, Arterial 7.431 (7.35-7.45)
[2024-09-06 15:49] LABS: Puncture Site Left Radial artery
[2024-09-06] MEDS ORDERED: Propofol BOLUS 1,000 MG/100 ML VIAL IV PRN (16:45)
[2024-09-06] MEDS ORDERED: Propofol 1,000 MG/100 ML VIAL IV PRN (16:45)
[2024-09-06] MEDS ORDERED: Fentanyl BOLUS 250 ML IVPB PRN (16:45)
[2024-09-06] MEDS ORDERED: DISCONTINUE PREVIOUS NARCOTIC PAIN MEDICATIONS AND BENZODIAZEPINES FS SCH (16:45)
[2024-09-06] MEDS: Fentanyl CADD 100 ML IV SCH (16:53)
[2024-09-06 17:15] LABS: Hematocrit 29.7 % (36.0-47.0); Hemoglobin 10.7 g/dL (12.0-16.0); Platelet Count 235 10x3/uL (130-400)
[2024-09-07] MEDS: Lactated Ringer's 500 ML IV SCH (04:20)
[2024-09-07] MEDS: Lactated Ringer's 1,000 ML IV SCH (04:20)
[2024-09-07] MEDS: Lorazepam 2 MG/ML VIAL SLOW IVP PRN (04:25)
[2024-09-07 04:37] LABS: Hematocrit 23.7 % (36.0-47.0); Hemoglobin 8.4 g/dL (12.0-16.0); Mean Corpuscular HGB CONC 35.4 g/dL (32.0-36.0); Mean Corpuscular Hemoglobin 32.3 pg (27.0-31.0); Mean Corpuscular Volume 91.2 fL (78.0-98.0); Mean Platelet Volume 10.8 fL (7.4-10.4); Platelet Count 347 10x3/uL (130-400); RBC Distribution Width 17.5 % (11.5-14.5)
[2024-09-07 04:42] LABS: Lactic Acid 1.79 mmol/L (0.5-2.2)
[2024-09-07 04:54] LABS: Phosphorus 4.4 mg/dL (2.3-4.7)
[2024-09-07 04:57] LABS: Vancomycin, Random 18.1 ug/mL (See Comment)
[2024-09-07 05:09] LABS: Anion Gap 16 mmol/L (10-20); BUN (Urea Nitrogen) 66 mg/dL (9.8-20.1); Calc. Creatinine Clearance 51 mL/min (70-130); Calcium 7.9 mg/dL (7.8-10.44); Carbon Dioxide 22 mmol/L (23-31); Chloride 96 mmol/L (98-107); Estimated GFR 47; Glucose 108 mg/dL (83-110); Potassium 4.8 mmol/L (3.5-5.1); Sodium 129 mmol/L (136-145)
[2024-09-07 05:10] LABS: Magnesium 2.7 mg/dL (1.6-2.6)
[2024-09-07 05:13] LABS: Anisocytosis SLIGHT = 6-15 cells HPF (0-5); Band 7 % (5-11); Dohle Bodies SLIGHT; Eosinophils 1 % (0-10); Hypochromia SLIGHT = 6-15 cells HPF (0-5); Large Platelets 2.9 % (0-5); Lymphocytes 14 % (21-51); Monocytes 5 % (0-10); Neutrophil 74 % (42-75); Ovalocytes SLIGHT = 2-5 cells HPF (0-1); Platelet Adequacy Comment Platelets Normal; Polychromasia SLIGHT = 2-3 cells HPF (0-2); Target Cells MODERATE= 6-15 cells HPF (0-1); Toxic Granulation SLIGHT
[2024-09-07] MEDS: Sodium Chloride 0.9% 1,000 ML IV SCH ×2 (07:33→08:02)
[2024-09-07] MEDS: Vancomycin 1 GM in Premix 1 BAG IVPB SCH (09:10)
[2024-09-07] MEDS: fentaNYL 50 mcg/hour Patch TD SCH (10:26)
[2024-09-07] MEDS: fentaNYL 50 mcg/mL 1 mL Vial SLOW IVP PRN (15:23)
[2024-09-07] MEDS: DC Sedation Protocol FS ONE (15:30)
[2024-09-08 05:35] LABS: Hematocrit 18.9 % (36.0-47.0); Hemoglobin 6.5 g/dL (12.0-16.0); Mean Corpuscular HGB CONC 34.4 g/dL (32.0-36.0); Mean Corpuscular Hemoglobin 31.9 pg (27.0-31.0); Mean Corpuscular Volume 92.6 fL (78.0-98.0); Mean Platelet Volume 10.7 fL (7.4-10.4); Platelet Count 348 10x3/uL (130-400); RBC Distribution Width 18.3 % (11.5-14.5); Red Blood Cell (RBC) Count 2.04 mill/uL (4.20-5.40)
[2024-09-08 05:45] LABS: ALT (SGPT) 7 U/L (8-55); AST (SGOT) 15 U/L (5-34); Albumin 1.6 g/dL (3.4-4.8); Alkaline Phosphatase 44 U/L (40-110); Anion Gap 11 mmol/L (10-20); BUN (Urea Nitrogen) 38 mg/dL (9.8-20.1); Bilirubin, Total 0.4 mg/dL (0.2-1.2); Calc. Creatinine Clearance 90 mL/min (70-130); Calcium 7.8 mg/dL (7.8-10.44); Carbon Dioxide 21 mmol/L (23-31); Chloride 102 mmol/L (98-107); Estimated GFR 90; Glucose 100 mg/dL (83-110); Magnesium 2.3 mg/dL (1.6-2.6); Potassium 4.6 mmol/L (3.5-5.1); Protein, Total 5.6 g/dL (5.8-8.1); Sodium 129 mmol/L (136-145)
[2024-09-08 05:57] LABS: Anisocytosis SLIGHT = 6-15 cells HPF (0-5); Band 8 % (5-11); Eosinophils 3 % (0-10); Hypochromia MODERATE=16-30 cells HPF (0-5); Large Platelets 13.7 % (0-5); Lymphocytes 8 % (21-51); Metamyelocyte 2 % (0-0); Monocytes 4 % (0-10); Neutrophil 73 % (42-75); Platelet Adequacy Comment Platelets Normal; Polychromasia SLIGHT = 2-3 cells HPF (0-2); Toxic Granulation MODERATE
[2024-09-08 06:22] LABS: Hematocrit 21.2 % (36.0-47.0); Hemoglobin 7.4 g/dL (12.0-16.0); Mean Corpuscular HGB CONC 34.9 g/dL (32.0-36.0); Mean Corpuscular Hemoglobin 32.5 pg (27.0-31.0); Mean Platelet Volume 10.6 fL (7.4-10.4); Platelet Count 342 10x3/uL (130-400); RBC Distribution Width 18.1 % (11.5-14.5); Red Blood Cell (RBC) Count 2.28 mill/uL (4.20-5.40)
[2024-09-08 06:43] LABS: Anisocytosis SLIGHT = 6-15 cells HPF (0-5); Band 4 % (5-11); Dohle Bodies SLIGHT; Eosinophils 3 % (0-10); Hypochromia MODERATE=16-30 cells HPF (0-5); Large Platelets 6.7 % (0-5); Lymphocytes 14 % (21-51); Monocytes 1 % (0-10); Neutrophil 79 % (42-75); Nucleated RBC (Manual Ct) 1 % (0); Platelet Adequacy Comment Platelets Normal; Polychromasia SLIGHT = 2-3 cells HPF (0-2); Target Cells SLIGHT = 2-5 cells HPF (0-1); Toxic Granulation MODERATE; Vacuoles SLIGHT
[2024-09-08] MEDS ORDERED: Ondansetron PF 4 MG/2 ML Vial ONE (07:21)
[2024-09-08] MEDS ORDERED: Dexamethasone 4 mg/ml Vial ONE (07:21)
[2024-09-08] MEDS ORDERED: Esmolol 100 MG/10 ML VIAL ONE (07:21)
[2024-09-08] MEDS ORDERED: Lidocaine 2% PF 100 mg/5 ml Syringe ONE (07:21)
[2024-09-08] MEDS ORDERED: Midazolam HCl 2 mg/2 ml Vial ONE (07:21)
[2024-09-08] MEDS ORDERED: PROPOFOL 20 ML ONE (07:21)
[2024-09-08] MEDS ORDERED: Rocuronium Bromide 10 MG/ML (10ML VIAL) ONE (07:21)
[2024-09-08] MEDS ORDERED: fentaNYL PF 100 MCG/2 ML SYRINGE ONE (07:21)
[2024-09-08] MEDS ORDERED: Glycopyrrolate 0.2 MG/ML 5 ML SYRINGE ONE (07:22)
[2024-09-08] MEDS ORDERED: PHENYLEPHRINE-NS 100 MCG/ML 10 ML SYRINGE ONE (08:11)
[2024-09-08] MEDS ORDERED: SUGAMMADEX SODIUM 200 MG/2 ML VIAL ONE (10:10)
[2024-09-08] MEDS ORDERED: fentaNYL 50 mcg/mL 1 mL Vial ONE (11:12)
[2024-09-08] MEDS: Diltiazem HCl/D5W 125 MG in Premix 1 BAG IVPB SCH (12:56)
[2024-09-08] MEDS: fentaNYL 50 mcg/mL 1 mL Vial SLOW IVP PRN (14:10)
[2024-09-08] MEDS ORDERED: LYTE IN TPN IVPB PRN (14:19)
[2024-09-08] MEDS: fentaNYL 50 mcg/mL 1 mL Vial ONE (14:20)
[2024-09-08] MEDS: Furosemide 20 MG (2 mL) VIAL SLOW IVP SCH (14:26)
[2024-09-09 04:37] LABS: #Basophils 0.04 10x3/uL (0.0-0.2); #Eosinophils Less than 0.03 10x3/uL (0.0-0.7); %Basophils 0.4 % (0.0-1.0); %Eosinophils 0.2 % (0.0-10.0); %Lymphocytes 13.2 % (21.0-51.0); %Monocytes 7.5 % (0.0-10.0); %Neutrophils 73.9 % (42.0-75.0); Hematocrit 22.6 % (36.0-47.0); Mean Corpuscular HGB CONC 35.4 g/dL (32.0-36.0); Mean Corpuscular Volume 90.4 fL (78.0-98.0); Mean Platelet Volume 10.3 fL (7.4-10.4); Platelet Count 420 10x3/uL (130-400); RBC Distribution Width 17.1 % (11.5-14.5)
[2024-09-09 04:59] LABS: ALT (SGPT) 8 U/L (8-55); AST (SGOT) 25 U/L (5-34); Albumin 1.8 g/dL (3.4-4.8); Alkaline Phosphatase 59 U/L (40-110); Anion Gap 10 mmol/L (10-20); BUN (Urea Nitrogen) 28 mg/dL (9.8-20.1); Bilirubin, Total 0.5 mg/dL (0.2-1.2); Calc. Creatinine Clearance 83 mL/min (70-130); Calcium 8.2 mg/dL (7.8-10.44); Carbon Dioxide 25 mmol/L (23-31); Chloride 100 mmol/L (98-107); Estimated GFR 86; Globulin 4.5 g/dL (2.4-3.5); Glucose 135 mg/dL (83-110); Potassium 4.8 mmol/L (3.5-5.1); Protein, Total 6.3 g/dL (5.8-8.1); Sodium 130 mmol/L (136-145)
[2024-09-09] MEDS: Pantoprazole 40 MG VIAL IVP SCH (08:18)
[2024-09-09] MEDS: Furosemide 20 MG (2 mL) VIAL SLOW IVP SCH (08:19)
[2024-09-09] MEDS: Multivitamins, Adult 10 ML, TRACE ELEMENT CONCENTRATE 1 ML in D15W-AA 5% with Lytes 2,0... IV SCH (14:18)
[2024-09-09] MEDS: Sodium Chloride 0.9% 1,000 ML IV SCH (14:19)
[2024-09-10 04:05] LABS: #Basophils 0.05 10x3/uL (0.0-0.2); %Basophils 0.4 % (0.0-1.0); %Eosinophils 2.7 % (0.0-10.0); %Monocytes 8.6 % (0.0-10.0); %Neutrophils 64.2 % (42.0-75.0); Mean Corpuscular HGB CONC 34.8 g/dL (32.0-36.0); Mean Corpuscular Hemoglobin 32.3 pg (27.0-31.0); Mean Corpuscular Volume 92.7 fL (78.0-98.0); Mean Platelet Volume 10.2 fL (7.4-10.4); Platelet Count 484 10x3/uL (130-400); RBC Distribution Width 17.5 % (11.5-14.5); Red Blood Cell (RBC) Count 2.48 mill/uL (4.20-5.40)
[2024-09-10 04:18] LABS: Vancomycin, Random 11.4 ug/mL (See Comment)
[2024-09-10 04:26] LABS: ALT (SGPT) 6 U/L (8-55); AST (SGOT) 19 U/L (5-34); Albumin 1.8 g/dL (3.4-4.8); Alkaline Phosphatase 52 U/L (40-110); Anion Gap 12 mmol/L (10-20); BUN (Urea Nitrogen) 23 mg/dL (9.8-20.1); Bilirubin, Total 0.3 mg/dL (0.2-1.2); Calc. Creatinine Clearance 82 mL/min (70-130); Carbon Dioxide 24 mmol/L (23-31); Chloride 98 mmol/L (98-107); Estimated GFR 84; Globulin 4.4 g/dL (2.4-3.5); Glucose 120 mg/dL (83-110); Potassium 4.3 mmol/L (3.5-5.1); Protein, Total 6.2 g/dL (5.8-8.1); Sodium 130 mmol/L (136-145)
[2024-09-10] MEDS: Enoxaparin 40 MG (0.4 mL) SYRINGE SC SCH (10:02)
[2024-09-10] MEDS: Vancomycin (BATCH) 1.5 GM in Premix 1 BAG IVPB SCH (10:13)
[2024-09-10] MEDS: Activase 2 MG VIAL CATH SCH (13:28)
[2024-09-10] MEDS: Sterile Water 10 ML VIAL IVP SCH (13:29)
[2024-09-10] MEDS: LevoFLOXacin 750 mg/D5W 750 MG in Premix 1 BAG IVPB SCH (18:12)
[2024-09-10] MEDS: metroNIDAZOLE 500 MG in Premix 1 BAG IVPB SCH (21:03)
[2024-09-11] MEDS: dilTIAZem 30 MG TAB PO SCH (08:16)
[2024-09-12 03:52] LABS: #Basophils 0.04 10x3/uL (0.0-0.2); %Basophils 0.3 % (0.0-1.0); %Eosinophils 2.3 % (0.0-10.0); %Lymphocytes 18.9 % (21.0-51.0); %Monocytes 6.9 % (0.0-10.0); %Neutrophils 66.9 % (42.0-75.0); Hematocrit 22.5 % (36.0-47.0); Hemoglobin 7.6 g/dL (12.0-16.0); Mean Corpuscular HGB CONC 33.8 g/dL (32.0-36.0); Mean Corpuscular Hemoglobin 31.7 pg (27.0-31.0); Mean Corpuscular Volume 93.8 fL (78.0-98.0); Mean Platelet Volume 10.1 fL (7.4-10.4); Platelet Count 491 10x3/uL (130-400); RBC Distribution Width 17.2 % (11.5-14.5)
[2024-09-12 04:09] LABS: Anion Gap 12 mmol/L (10-20); BUN (Urea Nitrogen) 22 mg/dL (9.8-20.1); Calc. Creatinine Clearance 87 mL/min (70-130); Calcium 7.8 mg/dL (7.8-10.44); Carbon Dioxide 22 mmol/L (23-31); Chloride 99 mmol/L (98-107); Estimated GFR 84; Glucose 119 mg/dL (83-110); Magnesium 1.6 mg/dL (1.6-2.6); Potassium 4.2 mmol/L (3.5-5.1); Sodium 129 mmol/L (136-145)
[2024-09-12 06:39] LABS: Phosphorus 3.1 mg/dL (2.3-4.7)
[2024-09-12] MEDS: Magnesium 2 GM/50 ML(in water) 2 GM in Premix 1 BAG IVPB SCH (08:18)
[2024-09-12] MEDS: Amiodarone 200 MG TAB PO SCH (20:00)
[2024-09-12] MEDS ORDERED: Amiodarone 200 MG TAB PO SCH (21:00)
[2024-09-13 10:52] LABS: #Basophils 0.06 10x3/uL (0.0-0.2); %Basophils 0.5 % (0.0-1.0); %Eosinophils 1.3 % (0.0-10.0); %Lymphocytes 18.3 % (21.0-51.0); %Monocytes 7.7 % (0.0-10.0); Hematocrit 21.6 % (36.0-47.0); Hemoglobin 7.3 g/dL (12.0-16.0); Mean Corpuscular HGB CONC 33.8 g/dL (32.0-36.0); Mean Corpuscular Hemoglobin 32.7 pg (27.0-31.0); Mean Corpuscular Volume 96.9 fL (78.0-98.0); Mean Platelet Volume 10.3 fL (7.4-10.4); Platelet Count 461 10x3/uL (130-400); RBC Distribution Width 17.3 % (11.5-14.5); Red Blood Cell (RBC) Count 2.23 mill/uL (4.20-5.40)
[2024-09-13 11:08] LABS: Anion Gap 12 mmol/L (10-20); BUN (Urea Nitrogen) 22 mg/dL (9.8-20.1); Calc. Creatinine Clearance 93 mL/min (70-130); Calcium 7.7 mg/dL (7.8-10.44); Carbon Dioxide 21 mmol/L (23-31); Chloride 98 mmol/L (98-107); Estimated GFR 90; Glucose 153 mg/dL (83-110); Potassium 4.1 mmol/L (3.5-5.1); Sodium 127 mmol/L (136-145)
[2024-09-13] MEDS: dilTIAZem 30 MG TAB PO SCH (17:23)
[2024-09-13] MEDS: Enoxaparin 80 MG (0.8 mL) SYRINGE SC SCH (20:04)
[2024-09-14] MEDS: Calcium Carbonate 500 MG ChewTAB PO PRN (00:02)
[2024-09-14] MEDS: dilTIAZem 30 MG TAB PO SCH (20:40)
[2024-09-15 05:26] LABS: ALT (SGPT) Less than 5 U/L (8-55); AST (SGOT) 16 U/L (5-34); Albumin 1.5 g/dL (3.4-4.8); Alkaline Phosphatase 53 U/L (40-110); Anion Gap 11 mmol/L (10-20); BUN (Urea Nitrogen) 18 mg/dL (9.8-20.1); Bilirubin, Total 0.2 mg/dL (0.2-1.2); Calc. Creatinine Clearance 95 mL/min (70-130); Calcium 7.7 mg/dL (7.8-10.44); Carbon Dioxide 22 mmol/L (23-31); Chloride 99 mmol/L (98-107); Estimated GFR 91; Globulin 4.5 g/dL (2.4-3.5); Glucose 126 mg/dL (83-110); Magnesium 1.7 mg/dL (1.6-2.6); Phosphorus 3.3 mg/dL (2.3-4.7); Potassium 3.9 mmol/L (3.5-5.1); Sodium 128 mmol/L (136-145)
[2024-09-15] MEDS: fentaNYL 25 mcg Patch TD SCH (08:59)
[2024-09-15] MEDS: dilTIAZem 30 MG TAB PO SCH (08:59)
[2024-09-15] MEDS: Magnesium 2 GM/50 ML(in water) 2 GM in Premix 1 BAG IVPB SCH (08:59)
[2024-09-15] MEDS: diphenhydrAMINE 25 MG CAP PO SCH (22:12)
[2024-09-15] MEDS: Acetaminophen 325 MG TAB PO PRN (22:12)
[2024-09-16 07:35] LABS: #Basophils 0.04 10x3/uL (0.0-0.2); %Basophils 0.5 % (0.0-1.0); %Eosinophils 2.9 % (0.0-10.0); %Lymphocytes 19.8 % (21.0-51.0); %Monocytes 11.5 % (0.0-10.0); %Neutrophils 64.5 % (42.0-75.0); Hematocrit 18.9 % (36.0-47.0); Hemoglobin 6.1 g/dL (12.0-16.0); Mean Corpuscular HGB CONC 32.3 g/dL (32.0-36.0); Mean Corpuscular Hemoglobin 31.6 pg (27.0-31.0); Mean Corpuscular Volume 97.9 fL (78.0-98.0); Mean Platelet Volume 10.3 fL (7.4-10.4); Platelet Count 331 10x3/uL (130-400); RBC Distribution Width 17.2 % (11.5-14.5); Red Blood Cell (RBC) Count 1.93 mill/uL (4.20-5.40)
[2024-09-16 07:46] LABS: Anion Gap 8 mmol/L (10-20); BUN (Urea Nitrogen) 19 mg/dL (9.8-20.1); Calc. Creatinine Clearance 92 mL/min (70-130); Calcium 7.8 mg/dL (7.8-10.44); Carbon Dioxide 23 mmol/L (23-31); Chloride 101 mmol/L (98-107); Estimated GFR 89; Glucose 153 mg/dL (83-110); Potassium 4.1 mmol/L (3.5-5.1); Sodium 128 mmol/L (136-145)
[2024-09-16] MEDS: Furosemide 20 MG (2 mL) VIAL SLOW IVP SCH (12:15)
[2024-09-16] MEDS: Ketorolac Tromethamine 30 MG (1 mL) VIAL IVP SCH ×2 (13:33→17:58)
[2024-09-16] MEDS: Acetaminophen 325 MG TAB PO SCH (13:33)
[2024-09-16] MEDS: Methocarbamol 500 MG TAB PO SCH (13:34)
[2024-09-16] MEDS: traMADol HCl 50 MG TAB PO SCH (17:59)
[2024-09-16] MEDS: diphenhydrAMINE 25 MG CAP PO SCH (20:16)
[2024-09-16 20:25] LABS: #Basophils 0.04 10x3/uL (0.0-0.2); %Basophils 0.5 % (0.0-1.0); %Eosinophils 2.6 % (0.0-10.0); %Lymphocytes 19.2 % (21.0-51.0); %Monocytes 9.8 % (0.0-10.0); Hematocrit 22.2 % (36.0-47.0); Hemoglobin 7.4 g/dL (12.0-16.0); Mean Corpuscular HGB CONC 33.3 g/dL (32.0-36.0); Mean Corpuscular Hemoglobin 31.5 pg (27.0-31.0); Mean Corpuscular Volume 94.5 fL (78.0-98.0); Mean Platelet Volume 10.1 fL (7.4-10.4); Platelet Count 296 10x3/uL (130-400); RBC Distribution Width 18.6 % (11.5-14.5); Red Blood Cell (RBC) Count 2.35 mill/uL (4.20-5.40)
[2024-09-17] MEDS: Atropine Sulfate 1 mg/10 ml Syringe IVP SCH (00:12)
[2024-09-17] MEDS ORDERED: Atropine Sulfate 1 mg/10 ml Syringe IVP SCH (00:30)
[2024-09-17] MEDS: Atropine Sulfate 1 mg/10 ml Syringe ONE (00:44)
[2024-09-17 00:52] LABS: #Basophils 0.04 10x3/uL (0.0-0.2); %Basophils 0.6 % (0.0-1.0); %Eosinophils 3.5 % (0.0-10.0); %Monocytes 8.1 % (0.0-10.0); Hemoglobin 7.2 g/dL (12.0-16.0); Mean Corpuscular HGB CONC 32.7 g/dL (32.0-36.0); Mean Corpuscular Hemoglobin 30.9 pg (27.0-31.0); Mean Corpuscular Volume 94.4 fL (78.0-98.0); Mean Platelet Volume 10.4 fL (7.4-10.4); Platelet Count 288 10x3/uL (130-400); RBC Distribution Width 18.7 % (11.5-14.5); Red Blood Cell (RBC) Count 2.33 mill/uL (4.20-5.40)
[2024-09-17] MEDS: DOPamine 400 MG/D5W 250 ML 250 ML IVPB SCH (01:18)
[2024-09-17] MEDS: Glucagon 1 MG/ML KIT IVP SCH (01:22)
[2024-09-17 01:50] LABS: Anion Gap 11 mmol/L (10-20); BUN (Urea Nitrogen) 25 mg/dL (9.8-20.1); Calc. Creatinine Clearance 80 mL/min (70-130); Calcium 7.4 mg/dL (7.8-10.44); Carbon Dioxide 21 mmol/L (23-31); Chloride 99 mmol/L (98-107); Estimated GFR 75; Glucose 121 mg/dL (83-110); Potassium 4.2 mmol/L (3.5-5.1); Sodium 127 mmol/L (136-145)
[2024-09-17 02:54] LABS: Free T4 (Free Thyroxine) 1.18 ng/dL (0.70-1.48)
[2024-09-17 07:12] LABS: Phosphorus 4.4 mg/dL (2.3-4.7)
[2024-09-17 07:14] LABS: Magnesium 1.7 mg/dL (1.6-2.6)
[2024-09-17] MEDS: Diphenoxylate HCl/Atropine Tablet PO SCH (09:22)
[2024-09-17] MEDS: Aripiprazole 2 MG TAB PO SCH (09:23)
[2024-09-17] MEDS: Furosemide 20 MG TAB PO SCH (09:25)
[2024-09-17] MEDS: Enoxaparin 80 MG (0.8 mL) SYRINGE SC SCH (09:25)
[2024-09-17] MEDS: Magnesium 2 GM/50 ML(in water) 2 GM in Premix 1 BAG IVPB SCH (10:54)
[2024-09-17] MEDS: busPIRone HCl 5 MG TAB PO SCH ×2 (10:55→21:12)
[2024-09-17 17:26] LABS: #Basophils 0.03 10x3/uL (0.0-0.2); %Basophils 0.5 % (0.0-1.0); %Eosinophils 0.9 % (0.0-10.0); %Lymphocytes 3.8 % (21.0-51.0); %Monocytes 6.4 % (0.0-10.0); %Neutrophils 86.7 % (42.0-75.0); Hematocrit 27.3 % (36.0-47.0); Hemoglobin 9.3 g/dL (12.0-16.0); Mean Corpuscular HGB CONC 34.1 g/dL (32.0-36.0); Mean Corpuscular Hemoglobin 31.5 pg (27.0-31.0); Mean Corpuscular Volume 92.5 fL (78.0-98.0); Mean Platelet Volume 9.8 fL (7.4-10.4); Platelet Count 265 10x3/uL (130-400); RBC Distribution Width 19.2 % (11.5-14.5); Red Blood Cell (RBC) Count 2.95 mill/uL (4.20-5.40)
[2024-09-17 17:41] LABS: Anion Gap 10 mmol/L (10-20); BUN (Urea Nitrogen) 28 mg/dL (9.8-20.1); Calc. Creatinine Clearance 83 mL/min (70-130); Calcium 7.7 mg/dL (7.8-10.44); Carbon Dioxide 22 mmol/L (23-31); Chloride 101 mmol/L (98-107); Estimated GFR 78; Glucose 135 mg/dL (83-110); Magnesium 2.2 mg/dL (1.6-2.6); Potassium 4.3 mmol/L (3.5-5.1); Sodium 129 mmol/L (136-145)
[2024-09-17 17:42] LABS: ALT (SGPT) 6 U/L (8-55); AST (SGOT) 16 U/L (5-34); Albumin 1.6 g/dL (3.4-4.8); Alkaline Phosphatase 56 U/L (40-110); Bilirubin, Direct 0.1 mg/dL (0.1-0.3); Bilirubin, Total 0.2 mg/dL (0.2-1.2); Phosphorus 4.4 mg/dL (2.3-4.7); Protein, Total 6.4 g/dL (5.8-8.1)
[2024-09-17 17:47] LABS: Troponin I Less than 0.010 ng/mL (< 0.028)
[2024-09-17] MEDS: Aspirin Chewable 81 MG TAB PO SCH (17:50)
[2024-09-17] MEDS: Divalproex Sodium 125 mg Sprinkle Capsule PO SCH (20:59)
[2024-09-18 04:04] LABS: #Basophils Less than 0.03 10x3/uL (0.0-0.2); %Basophils 0.3 % (0.0-1.0); %Eosinophils 0.7 % (0.0-10.0); %Lymphocytes 4.3 % (21.0-51.0); %Monocytes 6.7 % (0.0-10.0); %Neutrophils 86.1 % (42.0-75.0); Hematocrit 24.4 % (36.0-47.0); Hemoglobin 8.2 g/dL (12.0-16.0); Mean Corpuscular HGB CONC 33.6 g/dL (32.0-36.0); Mean Corpuscular Hemoglobin 31.3 pg (27.0-31.0); Mean Corpuscular Volume 93.1 fL (78.0-98.0); Mean Platelet Volume 10.2 fL (7.4-10.4); Platelet Count 261 10x3/uL (130-400); RBC Distribution Width 19.3 % (11.5-14.5); Red Blood Cell (RBC) Count 2.62 mill/uL (4.20-5.40)
[2024-09-18 04:28] LABS: ALT (SGPT) 6 U/L (8-55); AST (SGOT) 22 U/L (5-34); Albumin 1.6 g/dL (3.4-4.8); Alkaline Phosphatase 59 U/L (40-110); Anion Gap 10 mmol/L (10-20); BUN (Urea Nitrogen) 29 mg/dL (9.8-20.1); Bilirubin, Total 0.2 mg/dL (0.2-1.2); Calc. Creatinine Clearance 84 mL/min (70-130); Calcium 7.6 mg/dL (7.8-10.44); Carbon Dioxide 21 mmol/L (23-31); Chloride 100 mmol/L (98-107); Estimated GFR 79; Globulin 4.8 g/dL (2.4-3.5); Glucose 143 mg/dL (83-110); Phosphorus 4.4 mg/dL (2.3-4.7); Potassium 4.3 mmol/L (3.5-5.1); Protein, Total 6.4 g/dL (5.8-8.1); Sodium 127 mmol/L (136-145)
[2024-09-18] MEDS: Levothyroxine Sodium 50 MCG TAB PO SCH (05:34)
[2024-09-18] MEDS: Magnesium 2 GM/50 ML(in water) 2 GM in Premix 1 BAG IVPB SCH (08:26)
[2024-09-18] MEDS ORDERED: Diltiazem HCl/D5W 125 MG in Premix 1 BAG IVPB SCH (08:30)
[2024-09-18] MEDS: Scopolamine 1 mg/72 hour Patch TD SCH (08:53)
[2024-09-18] MEDS ORDERED: Aspirin Chewable 81 MG TAB PO SCH (09:00)
[2024-09-18] MEDS: fentaNYL 12 mcg Patch TD SCH (09:04)
[2024-09-18] MEDS: dilTIAZem 125 MG in Sodium Chloride 0.9% 100 ML IVPB SCH (09:06)
[2024-09-18] MEDS: Divalproex Sodium 125 mg Sprinkle Capsule PO SCH (10:47)
[2024-09-18] MEDS: Aspirin Chewable 81 MG TAB PO SCH (10:50)
[2024-09-18] MEDS: Aripiprazole 2 MG TAB PO SCH (10:50)
[2024-09-18] MEDS ORDERED: Lidocaine 1% PF 5 ML VIAL ONE (13:01)
[2024-09-18] MEDS ORDERED: Sodium Bicarbonate 2.5 MEQ/5 ML SDV ONE (13:01)
[2024-09-18] MEDS: Micafungin 100 MG in Sodium Chloride 0.9% 100 ML IVPB SCH (14:35)
[2024-09-18] MEDS: Sodium Chloride 0.9% 1,000 ML IV SCH (14:37)
[2024-09-18] MEDS: [UNRECOGNIZED DRUG - OTHER] IV SCH (14:39)
[2024-09-18] MEDS: MULTIVITAMINS IV SCH (14:39)
[2024-09-18] MEDS: SODIUM ACETATE IV SCH (14:39)
[2024-09-18] MEDS: Vancomycin 1 GM in Premix 1 BAG IVPB SCH (16:53)
[2024-09-19 05:33] LABS: Vancomycin, Random 10.2 ug/mL (See Comment)
[2024-09-19] MEDS: Vancomycin 1 GM in Premix 1 BAG IVPB SCH (06:27)
[2024-09-19] MEDS: Enoxaparin 100 MG (1 mL) SYRINGE SC SCH (09:54)
[2024-09-19 10:40] LABS: #Basophils Less than 0.03 10x3/uL (0.0-0.2); %Basophils 0.4 % (0.0-1.0); %Eosinophils 1.7 % (0.0-10.0); %Lymphocytes 10.5 % (21.0-51.0); %Monocytes 6.2 % (0.0-10.0); %Neutrophils 80.1 % (42.0-75.0); Hematocrit 20.8 % (36.0-47.0); Hemoglobin 7.1 g/dL (12.0-16.0); Mean Corpuscular HGB CONC 34.1 g/dL (32.0-36.0); Mean Corpuscular Hemoglobin 31.8 pg (27.0-31.0); Mean Corpuscular Volume 93.3 fL (78.0-98.0); Mean Platelet Volume 10.6 fL (7.4-10.4); Platelet Count 227 10x3/uL (130-400); RBC Distribution Width 19.4 % (11.5-14.5); Red Blood Cell (RBC) Count 2.23 mill/uL (4.20-5.40)
[2024-09-19] MEDS: traMADol HCl 50 MG TAB PO PRN (10:45)
[2024-09-19 11:10] LABS: Anion Gap 10 mmol/L (10-20); BUN (Urea Nitrogen) 27 mg/dL (9.8-20.1); Calc. Creatinine Clearance 85 mL/min (70-130); Calcium 7.6 mg/dL (7.8-10.44); Carbon Dioxide 21 mmol/L (23-31); Chloride 99 mmol/L (98-107); Estimated GFR 72; Glucose 135 mg/dL (83-110); Magnesium 2.2 mg/dL (1.6-2.6); Phosphorus 3.6 mg/dL (2.3-4.7); Potassium 4.2 mmol/L (3.5-5.1); Sodium 126 mmol/L (136-145)
[2024-09-19] MEDS: DULoxetine 30 MG CAP PO SCH (15:04)
[2024-09-19] MEDS: fentaNYL 50 mcg/mL 1 mL Vial SLOW IVP SCH (15:04)
[2024-09-19] MEDS: Vancomycin 1.5 GRAM/300 ML BAG 1.5 GM in Premix 1 BAG IVPB SCH (18:31)
[2024-09-20 04:12] LABS: Vancomycin, Random 24.8 ug/mL (See Comment)
[2024-09-20 04:12] LABS: Hematocrit 20.4 % (36.0-47.0); Mean Corpuscular HGB CONC 34.3 g/dL (32.0-36.0); Mean Corpuscular Hemoglobin 31.4 pg (27.0-31.0); Mean Corpuscular Volume 91.5 fL (78.0-98.0); Mean Platelet Volume 10.8 fL (7.4-10.4); Platelet Count 190 10x3/uL (130-400); RBC Distribution Width 19.5 % (11.5-14.5); Red Blood Cell (RBC) Count 2.23 mill/uL (4.20-5.40)
[2024-09-20 04:16] LABS: Anion Gap 12 mmol/L (10-20); BUN (Urea Nitrogen) 25 mg/dL (9.8-20.1); Calc. Creatinine Clearance 90 mL/min (70-130); Calcium 7.5 mg/dL (7.8-10.44); Carbon Dioxide 20 mmol/L (23-31); Chloride 98 mmol/L (98-107); Estimated GFR 78; Glucose 122 mg/dL (83-110); Magnesium 1.9 mg/dL (1.6-2.6); Potassium 4.2 mmol/L (3.5-5.1); Sodium 126 mmol/L (136-145)
[2024-09-20 05:12] LABS: Band 32 % (5-11); Eosinophils 4 % (0-10); Hypochromia SLIGHT = 6-15 cells (100X) (0-5/hpf); Lymphocytes 18 % (21-51); Metamyelocyte 2 % (0-0); Monocytes 2 % (0-10); Neutrophil 42 % (42-75); Plasma Cells 0 % (0-0); Platelet Adequacy Comment Appears Adequate; Total Cell Count 50
[2024-09-20] MEDS: DULoxetine 30 MG CAP PO SCH (09:02)
[2024-09-20] MEDS: Magnesium 2 GM/50 ML(in water) 2 GM in Premix 1 BAG IVPB SCH (09:04)
[2024-09-20] MEDS: [UNRECOGNIZED DRUG - OTHER] IV SCH (14:07)
[2024-09-20] MEDS: SODIUM ACETATE IV SCH (14:07)
[2024-09-20] MEDS: MULTIVITAMINS IV SCH (14:07)
[2024-09-21] MEDS: Diltiazem HCl/D5W 125 MG in Premix 1 BAG IVPB SCH (02:16)
[2024-09-21 04:08] LABS: Mean Corpuscular Hemoglobin 31.8 pg (27.0-31.0); Mean Corpuscular Volume 90.9 fL (78.0-98.0); Mean Platelet Volume 10.8 fL (7.4-10.4); Platelet Count 186 10x3/uL (130-400); RBC Distribution Width 19.4 % (11.5-14.5)
[2024-09-21 04:24] LABS: Sodium 128 mmol/L (136-145)
[2024-09-21 04:56] LABS: Band 23 % (5-11); Hypochromia SLIGHT = 6-15 cells (100X) (0-5/hpf); Lymphocytes 11 % (21-51); Monocytes 1 % (0-10); Neutrophil 65 % (42-75); Platelet Adequacy Comment Appears Adequate
[2024-09-21] MEDS ORDERED: Magnesium 2 GM/50 ML(in water) 2 GM in Premix 1 BAG IVPB SCH (06:15)
[2024-09-21 16:11] LABS: ALT (SGPT) 13 U/L (8-55); AST (SGOT) 37 U/L (5-34); Albumin 1.6 g/dL (3.4-4.8); Alkaline Phosphatase 144 U/L (40-110); Anion Gap 12 mmol/L (10-20); BUN (Urea Nitrogen) 24 mg/dL (9.8-20.1); Bilirubin, Total 0.5 mg/dL (0.2-1.2); Calc. Creatinine Clearance 101 mL/min (70-130); Calcium 7.8 mg/dL (7.8-10.44); Carbon Dioxide 23 mmol/L (23-31); Chloride 97 mmol/L (98-107); Estimated GFR 90; Globulin 5.7 g/dL (2.4-3.5); Glucose 131 mg/dL (83-110); Magnesium 1.8 mg/dL (1.6-2.6); Phosphorus 3.8 mg/dL (2.3-4.7); Potassium 4.2 mmol/L (3.5-5.1); Protein, Total 7.3 g/dL (5.8-8.1); Sodium 128 mmol/L (136-145)
[2024-09-21] MEDS: Magnesium 2 GM/50 ML(in water) 2 GM in Premix 1 BAG IVPB SCH (21:17)
[2024-09-22] MEDS: diphenhydrAMINE 50 MG/ML VIAL IVP SCH (01:03)
[2024-09-22] MEDS: Furosemide 20 MG (2 mL) VIAL SLOW IVP SCH ×2 (02:03→07:00)
[2024-09-22] MEDS: dilTIAZem 125 MG in Sodium Chloride 0.9% 100 ML IVPB SCH ×2 (02:49→12:22)
[2024-09-22 05:11] LABS: #Basophils 0.07 10x3/uL (0.0-0.2); %Eosinophils 3.1 % (0.0-10.0); %Lymphocytes 32.6 % (21.0-51.0); %Monocytes 14.5 % (0.0-10.0); %Neutrophils 43.9 % (42.0-75.0); Hematocrit 22.7 % (36.0-47.0); Hemoglobin 7.9 g/dL (12.0-16.0); Mean Corpuscular HGB CONC 34.8 g/dL (32.0-36.0); Mean Corpuscular Hemoglobin 33.5 pg (27.0-31.0); Mean Corpuscular Volume 96.2 fL (78.0-98.0); Mean Platelet Volume 10.8 fL (7.4-10.4); Platelet Count 160 10x3/uL (130-400); RBC Distribution Width 20.3 % (11.5-14.5); Red Blood Cell (RBC) Count 2.36 mill/uL (4.20-5.40)
[2024-09-22 05:20] LABS: Vancomycin, Random 23.4 ug/mL (See Comment)
[2024-09-22] MEDS ORDERED: Ipratropium/Albuterol 3 ML NEB NEB PRN (06:28)
[2024-09-22] MEDS ORDERED: EPINEPHrine 1 MG/ML VIAL ONE (06:40)
[2024-09-22] MEDS ORDERED: Lidocaine 2% PF 5 ML VIAL ONE (06:41)
[2024-09-22] MEDS ORDERED: Bupivacaine PF 0.5% 30 ML VIAL ONE (06:41)
[2024-09-22] MEDS: Lorazepam 2 MG/ML VIAL SLOW IVP SCH (07:01)
[2024-09-22] MEDS: Amiodarone 200 MG TAB PO SCH (09:16)
[2024-09-22] MEDS: [UNRECOGNIZED DRUG - OTHER] IV SCH (14:24)
[2024-09-22] MEDS: SODIUM ACETATE IV SCH (14:24)
[2024-09-22] MEDS: SODIUM CHLORIDE IV SCH (14:24)
[2024-09-22] MEDS: Vancomycin (BATCH) 1.25 GM in Premix 1 BAG IVPB SCH (18:26)
[2024-09-23] MEDS: fentaNYL 50 mcg/mL 1 mL Vial SLOW IVP SCH (00:56)
[2024-09-23 07:57] LABS: Hematocrit 23.5 % (36.0-47.0); Mean Corpuscular Hemoglobin 30.4 pg (27.0-31.0); Mean Corpuscular Volume 89.4 fL (78.0-98.0); Mean Platelet Volume 10.6 fL (7.4-10.4); Platelet Count 158 10x3/uL (130-400); RBC Distribution Width 18.2 % (11.5-14.5); Red Blood Cell (RBC) Count 2.63 mill/uL (4.20-5.40)
[2024-09-23 08:07] LABS: ALT (SGPT) 12 U/L (8-55); AST (SGOT) 30 U/L (5-34); Albumin 1.6 g/dL (3.4-4.8); Alkaline Phosphatase 140 U/L (40-110); Anion Gap 11 mmol/L (10-20); BUN (Urea Nitrogen) 17 mg/dL (9.8-20.1); Bilirubin, Total 0.4 mg/dL (0.2-1.2); Calc. Creatinine Clearance 114 mL/min (70-130); Calcium 7.8 mg/dL (7.8-10.44); Carbon Dioxide 30 mmol/L (23-31); Chloride 92 mmol/L (98-107); Estimated GFR 91; Globulin 5.7 g/dL (2.4-3.5); Glucose 128 mg/dL (83-110); Potassium 3.8 mmol/L (3.5-5.1); Protein, Total 7.3 g/dL (5.8-8.1); Sodium 129 mmol/L (136-145)
[2024-09-23 08:34] LABS: #Basophils 0.06 10x3/uL (0.0-0.2); %Basophils 0.7 % (0.0-1.0); %Eosinophils 3.7 % (0.0-10.0); %Lymphocytes 26.4 % (21.0-51.0); %Monocytes 14.1 % (0.0-10.0); Band 8 % (5-11); Eosinophils 3 % (0-10); Lymphocytes 38 % (21-51); Metamyelocyte 1 % (0-0); Monocytes 12 % (0-10); Myelocyte 1 % (0-0); Neutrophil 37 % (42-75); Nucleated RBC (Manual Ct) 1 % (0); Plasma Cells 0 % (0-0); Platelet Adequacy Comment Packed; Polychromasia SLIGHT = 2-3 cells (100X) (0-2/hpf); Total Cell Count 100
[2024-09-23] MEDS: oxyCODONE 5 MG TAB PO PRN (10:17)
[2024-09-24 05:23] LABS: Hemoglobin 7.9 g/dL (12.0-16.0); Mean Corpuscular HGB CONC 34.3 g/dL (32.0-36.0); Mean Corpuscular Volume 90.2 fL (78.0-98.0); Mean Platelet Volume 10.8 fL (7.4-10.4); Platelet Count 140 10x3/uL (130-400); RBC Distribution Width 18.6 % (11.5-14.5); Red Blood Cell (RBC) Count 2.55 mill/uL (4.20-5.40)
[2024-09-24 05:25] LABS: Vancomycin, Random 17.9 ug/mL (See Comment)
[2024-09-24 05:29] LABS: ALT (SGPT) 10 U/L (8-55); AST (SGOT) 31 U/L (5-34); Albumin 1.6 g/dL (3.4-4.8); Alkaline Phosphatase 131 U/L (40-110); Anion Gap 9 mmol/L (10-20); BUN (Urea Nitrogen) 14 mg/dL (9.8-20.1); Bilirubin, Total 0.4 mg/dL (0.2-1.2); Calc. Creatinine Clearance 106 mL/min (70-130); Carbon Dioxide 32 mmol/L (23-31); Chloride 93 mmol/L (98-107); Estimated GFR 92; Globulin 5.5 g/dL (2.4-3.5); Glucose 113 mg/dL (83-110); Potassium 3.9 mmol/L (3.5-5.1); Protein, Total 7.1 g/dL (5.8-8.1); Sodium 130 mmol/L (136-145)
[2024-09-24 05:47] LABS: Anisocytosis SLIGHT = 6-15 cells HPF (0-5); Band 10 % (5-11); Eosinophils 17 % (0-10); Hypochromia SLIGHT = 6-15 cells HPF (0-5); Large Platelets 7.8 % (0-5); Lymphocytes 8 % (21-51); Monocytes 20 % (0-10); Myelocyte 2 % (0-0); Neutrophil 40 % (42-75); Platelet Adequacy Comment Platelets Normal; Polychromasia SLIGHT = 2-3 cells HPF (0-2); Promyelocytes 2 % (0-0)
[2024-09-24 08:28] LABS: Reference Lab Name LABCORP
[2024-09-24] MEDS: Morphine 2 MG/ML VIAL SLOW IVP PRN (13:15)
[2024-09-24 14:12] VITALS: BMI 32.0
[2024-09-24] MEDS: Vancomycin (BATCH) 1.5 GM in Premix 1 BAG IVPB SCH (16:46)
[2024-09-24] MEDS: dilTIAZem CD 180 MG CAP PO SCH (17:37)
[2024-09-24] MEDS ORDERED: Diltiazem HCl/D5W 125 MG in Premix 1 BAG IVPB SCH (17:45)
[2024-09-24] MEDS ORDERED: dilTIAZem 125 MG, Admixture Fee 1 EACH in Sodium Chloride 0.9% 100 ML IVPB SCH (20:00)
[2024-09-25 05:14] LABS: ALT (SGPT) 12 U/L (8-55); AST (SGOT) 32 U/L (5-34); Albumin 1.6 g/dL (3.4-4.8); Alkaline Phosphatase 148 U/L (40-110); Anion Gap 11 mmol/L (10-20); BUN (Urea Nitrogen) 12 mg/dL (9.8-20.1); Bilirubin, Total 0.4 mg/dL (0.2-1.2); Calc. Creatinine Clearance 100 mL/min (70-130); Calcium 8.1 mg/dL (7.8-10.44); Carbon Dioxide 30 mmol/L (23-31); Chloride 93 mmol/L (98-107); Estimated GFR 90; Globulin 5.8 g/dL (2.4-3.5); Glucose 132 mg/dL (83-110); Magnesium 1.8 mg/dL (1.6-2.6); Potassium 4.1 mmol/L (3.5-5.1); Protein, Total 7.4 g/dL (5.8-8.1); Sodium 130 mmol/L (136-145)
[2024-09-25] MEDS: Magnesium 2 GM/50 ML(in water) 2 GM in Premix 1 BAG IVPB SCH (06:23)
[2024-09-25] MEDS ORDERED: dilTIAZem CD 180 MG CAP PO SCH (09:00)
[2024-09-25] MEDS: dilTIAZem CD 240 MG CAP PO SCH (09:03)
[2024-09-25] MEDS: Vancomycin (BATCH) 1.5 GM in Premix 1 BAG IVPB SCH (17:01)
[2024-09-26 06:20] LABS: Vancomycin, Random 19.2 ug/mL (See Comment)
[2024-09-26 06:21] LABS: ALT (SGPT) 10 U/L (8-55); AST (SGOT) 30 U/L (5-34); Albumin 1.6 g/dL (3.4-4.8); Alkaline Phosphatase 149 U/L (40-110); Anion Gap 11 mmol/L (10-20); BUN (Urea Nitrogen) 13 mg/dL (9.8-20.1); Bilirubin, Total 0.4 mg/dL (0.2-1.2); Calc. Creatinine Clearance 115 mL/min (70-130); Calcium 8.1 mg/dL (7.8-10.44); Carbon Dioxide 31 mmol/L (23-31); Chloride 93 mmol/L (98-107); Estimated GFR 93; Glucose 107 mg/dL (83-110); Magnesium 1.9 mg/dL (1.6-2.6); Potassium 3.8 mmol/L (3.5-5.1); Protein, Total 7.6 g/dL (5.8-8.1); Sodium 131 mmol/L (136-145)
[2024-09-26] MEDS: Magnesium 2 GM/50 ML(in water) 2 GM in Premix 1 BAG IVPB SCH (08:13)
[2024-09-26 09:15] VITALS: BP 165/95
[2024-09-27] MEDS: diphenhydrAMINE 50 MG/ML VIAL IVP PRN (02:06)
[2024-09-27] MEDS: dilTIAZem CD 180 MG CAP PO SCH (07:55)
[2024-09-28 04:03] VITALS: TEMP 98.5
[2024-09-28 05:02] LABS: Vancomycin, Random 20.1 ug/mL (See Comment)
[2024-09-28] MEDS: Promethazine HCl 12.5 MG in Sodium Chloride 0.9% 50 ML IVPB PRN (08:22)
[2024-09-28] MEDS: Metoprolol Tartrate 5 MG (5 mL) VIAL IVP SCH (09:00)
[2024-09-28] MEDS: Metoprolol Tartrate 5 MG (5 mL) VIAL ONE (09:40)
[2024-09-28] MEDS: Morphine 4 MG/ML VIAL SLOW IVP PRN (09:53)
[2024-09-28] MEDS: fentaNYL 50 mcg/hour Patch TD SCH (09:54)
== END 2024-09-28 10:34 | disposition hospice, inpatient (51) | DRG 329 ==
LOC: ERS 08:22 → SURG A 12:55 → OBS 08-31 02:02 → CCU 08-31 16:04 → IMCU/EMU 09-01 17:00 → CCU 09-06 13:32 → IMCU/EMU 09-09 15:17
PROVIDERS: ADMIT Specialist; ATTEND Specialist
PROC: 0DB80ZZ Excision of Small Intestine, Open Approach (ICD-10-PCS; principal; 2024-08-29)
PROC: 0DNW0ZZ Release Peritoneum, Open Approach (ICD-10-PCS; 2024-08-29)
PROC: 5A2204Z Restoration of Cardiac Rhythm, Single (ICD-10-PCS; 2024-09-01)
PROC: 0DQ80ZZ Repair Small Intestine, Open Approach (ICD-10-PCS; 2024-09-06)
PROC: 0DQ80ZZ Repair Small Intestine, Open Approach (ICD-10-PCS; 2024-09-08)
PROC: 02HV33Z Insertion of Infusion Device into Superior Vena Cava, Percutaneous Approach (ICD-10-PCS; 2024-09-18)
PROC: B518ZZA Fluoroscopy of Superior Vena Cava, Guidance (ICD-10-PCS; 2024-09-18)
PROC: B548ZZA Ultrasonography of Superior Vena Cava, Guidance (ICD-10-PCS; 2024-09-18)
DX: K50.912 Crohn's disease, unspecified, with intestinal obstruction (principal); A41.9 Sepsis, unspecified organism; K63.1 Perforation of intestine (nontraumatic); K65.9 Peritonitis, unspecified; K65.1 Peritoneal abscess; K91.89 Other postprocedural complications and disorders of digestive system; T81.31XA Disruption of external operation (surgical) wound, not elsewhere classified, initial encounter; T82.530A Leakage of surgically created arteriovenous fistula, initial encounter; E46 Unspecified protein-calorie malnutrition; I10 Essential (primary) hypertension; E11.9 Type 2 diabetes mellitus without complications; Z66 Do not resuscitate; Z51.5 Encounter for palliative care; F31.9 Bipolar disorder, unspecified; F41.9 Anxiety disorder, unspecified; E78.5 Hyperlipidemia, unspecified; E86.0 Dehydration; E66.9 Obesity, unspecified; K50.013 Crohn's disease of small intestine with fistula; Y83.8 Other surgical procedures as the cause of abnormal reaction of the patient, or of later complication, without mention of misadventure at the time of the procedure; D64.9 Anemia, unspecified; R53.81 Other malaise; I49.5 Sick sinus syndrome; I48.0 Paroxysmal atrial fibrillation; Z87.891 Personal history of nicotine dependence; Z93.2 Ileostomy status; Z88.5 Allergy status to narcotic agent; Z88.0 Allergy status to penicillin; Z79.899 Other long term (current) drug therapy; Z79.890 Hormone replacement therapy; Z90.49 Acquired absence of other specified parts of digestive tract; Z90.710 Acquired absence of both cervix and uterus; Z90.722 Acquired absence of ovaries, bilateral; Z68.32 Body mass index [BMI] 32.0-32.9, adult
CPT/HCPCS: 36415; 36416; 36430; 36573; 36600; 43753; 49406; 71045; 74018; 74022; 74176; 74177; 74250; 80048; 80053; 80076; 80202; 82565; 82805; 83605; 83690; 83735; 83880; 84100; 84145; 84439; 84443; 84478; 84481; 84484; 85014; 85018; 85025; 85049; 85060; 85730; 86850; 86900; 86901; 87040; 87070; 87077; 87081; 87149; 87186; 87205; 88307; 89051; 92960; 93005; 93010; 93306; 94002; 94003; 96374; 96375; 97139; A4314; C1713; C1729; C1751; C1776; C9250; J0171; J0282; J0360; J0461; J0665; J0692; J0694; J1100; J1160; J1200; J1265; J1642; J1644; J1650; J1885; J1940; J1956; J2003; J2060; J2248; J2250; J2272; J2405; J2470; J2550; J2704; J2765; J2997; J3010; J3370; J3475; J3480; J3490; J7030; J7070; J7120; J7999; P9016; P9047; Q0162; Q9963; Q9967